=== PATIENT | female | born 1990 | race African-American/Black ===

== ENCOUNTER 2016-09-28 19:48 | Emergency (ER) | payer OTHER ==
[~2016-09-28] VITALS: Ht 170.2 cm; Wt 95.7 kg
[2016-09-28 19:49] VITALS: BP 128/77
[2016-09-28 20:02] LABS: Urine RBC None Seen /hpf (0 - 4)
[2016-09-28 20:15] LABS: Basophils # (auto) 0.1 uL; Basophils % (auto) 0.5 % (0.0-2.0); CONDITION Y; Eosinophils # (auto) 0.2 uL; Hematocrit 39.3 % (36.0-46.0); Hemoglobin 13.1 g/dL (12.2-16.2); Lymphocytes # (auto) 1.7 uL; Lymphocytes % (auto) 14.2 % (10.0-50.0); Mean Corpuscular Hemoglobin 29.7 pg (28.0-32.0); Mean Corpuscular Hgb Conc. 33.3 g/dL (32.0-36.0); Mean Platelet Volume 7.9 fL (7.4-10.4); Monocytes # (auto) 0.6 uL; Monocytes % (auto) 4.8 % (0.0-12.0); Neutrophils # (auto) 9.5 uL; Neutrophils % (auto) 78.5 % (37.0-80.0); Platelet Count (auto) 305 10^3/uL (140-450); Red Cell Distribution Width 14.4 % (11.6-16.0); White Blood Cell 12.1 10^3/uL (4.4-10.8)
[2016-09-28 20:30] LABS: Albumin 3.6 g/dL (3.4-5.0); BUN/Creatinine Ratio 7.6; Bilirubin, Total 0.6 mg/dL (0.2-1.0); Calcium 8.6 mg/dL (8.5-10.1); Potassium 3.7 mmol/L (3.5-5.1); Total Protein 8.3 g/dL (6.4-8.2)
[2016-09-28 20:33] LABS: Urine Bilirubin Negative (Negative); Urine Blood Negative /uL (Negative); Urine Color Yellow (Yellow); Urine Glucose Normal (Normal); Urine Hyaline Cast FEW /lpf (0 - 2); Urine Mucus FEW (None Seen); Urine Nitrite Negative (Negative); Urine Squamous Epithelial Cell MANY /hpf (<5); Urine Urobilinogen Normal (Negative); Urine pH 5.5 (5.0-8.0)
[2016-09-28 20:36] LABS: Urine Ketone 1+ (Negative)
[2016-09-28] MEDS ORDERED: ONDANSETRON HCL 4 MG/2 ML VIAL IV ONE (22:45)
[2016-09-28] MEDS ORDERED: SODIUM CHLORIDE 0.9% 1,000 ML IV ONE (22:45)
== END 2016-09-29 00:15 | disposition home or self-care (01) ==
LOC: ER 19:50
DX: N39.0 Urinary tract infection, site not specified (principal)
CPT/HCPCS: 36415; 74176; 76705; 80053; 81001; 84702; 85025; 96361; 96374; 99285; J2405; J7030